=== PATIENT | male | born 1955 | race African-American/Black ===

== ENCOUNTER 2023-04-02 17:46 | Emergency (ER) | payer OTHER ==
[2023-04-02 17:56] VITALS: BP 138/94; PULSE 82; RESP 18; TEMP 98.7; BMI 30.5
[2023-04-02] MEDS ORDERED: KETOROLAC TROMETHAMINE 30 MG/1 ML VIAL IM ONE (18:43)
[2023-04-02] MEDS ORDERED: METHOCARBAMOL 500 MG TABLET PO ONE (18:46)
[2023-04-02] MEDS ORDERED: METHOCARBAMOL 500 MG TABLET ONE (18:52)
[2023-04-02] MEDS ORDERED: KETOROLAC TROMETHAMINE 30 MG/1 ML VIAL ONE (18:53)
[2023-04-02] MEDS ORDERED: LIDOCAINE 5% TOPICAL PATCH TP ONE (19:02)
[2023-04-02] MEDS ORDERED: LIDOCAINE 5% TOPICAL PATCH ONE (19:07)
[2023-04-02] MEDS ORDERED: LIDOCAINE PATCH REMOVAL MC ONE (19:13)
[2023-04-02] MEDS ORDERED: LIDOCAINE PATCH REMOVAL MC SCH (22:00)
== END 2023-04-02 19:16 | disposition home or self-care (01) ==
LOC: JERFT 17:46 → JER 17:46 → JERFT 19:16
PROC: 3E0233Z Introduction of Anti-inflammatory into Muscle, Percutaneous Approach (ICD-10-PCS; principal; 2023-04-02)
DX: M79.651 Pain in right thigh (principal); M79.18 Myalgia, other site
CPT/HCPCS: 99284-25

== ENCOUNTER 2023-06-29 06:23 | Emergency (ER) | payer OTHER ==
[2023-06-29 06:28] VITALS: BMI 27.1
[2023-06-29] MEDS ORDERED: SODIUM CHLORIDE 1,000 ML IV STA (10:59)
[2023-06-29 11:18] LABS: BASO % 0.3 % (0-2.0); EOS % 0.5 % (0-4.5); HEMOGLOBIN 14.9 GM/dL (11.7-16.9); INR 1.08 (0.83-1.09); LYMPH % 22.7 % (8-40); MCHC 31.7 g/dl (32.0-35.9); MEAN CELL VOLUME 75.7 fl (80-96); MEAN PLT VOLUME 10.5 fl (7.5-11.1); MONO % 7.1 % (3.8-10.2); NEUT % 69.4 % (42.8-82.8); PLATELET COUNT 281 10^3/uL (134-434); PROTHROMBIN TIME (PATIENT) 12.5 SEC (9.7-13.0); RBC 6.21 M/mm3 (4.00-5.60); WHITE BLOOD COUNT 16.2 K/mm3 (4.0-10.0)
[2023-06-29 11:21] LABS: ACTIVATED PTT 30.9 SECONDS (25.2-36.5)
[2023-06-29 11:29] LABS: POTASSIUM 3.8 mmol/L (3.5-5.1)
[2023-06-29 11:31] LABS: CALCIUM 9.1 mg/dL (8.5-10.1)
[2023-06-29 11:32] LABS: ALBUMIN 3.8 g/dl (3.4-5.0); BLOOD UREA NITROGEN 11.6 mg/dL (7-18)
[2023-06-29 11:35] LABS: CREATININE 1.2 mg/dL (0.55-1.3)
[2023-06-29 11:37] LABS: BILIRUBIN,TOTAL 0.4 mg/dL (0.2-1); TOT PROT 7.9 g/dl (6.4-8.2)
[2023-06-29 11:39] LABS: N-TERMINAL BNP 219.6 pg/ml (5-125)
[2023-06-29] MEDS ORDERED: LORazepam 2 MG/ML SDV VIAL IVPUSH STA (12:49)
[2023-06-29] MEDS ORDERED: LABETALOL HCL 5 MG/1 ML (100MG/20 ML VIAL) IVPUSH ONE (13:57)
[2023-06-29 14:25] VITALS: PULSE 81; RESP 16
[2023-06-29] MEDS ORDERED: niCARdipine HCL 25 MG/10 ML AMPUL IVPB ONE (14:27)
[2023-06-29] MEDS ORDERED: NICARDIPINE 25 MG in DEXTROSE 5%-WATER - 240 ML IVPB SCH (15:30)
[2023-06-30 10:02] VITALS: BP 155/95; TEMP 98
== END 2023-06-29 16:05 | disposition short-term general hospital (02) ==
LOC: JER 06:23
PROC: 3E033GC Introduction of Other Therapeutic Substance into Peripheral Vein, Percutaneous Approach (ICD-10-PCS; principal; 2023-06-29)
PROC: 3E033GC Introduction of Other Therapeutic Substance into Peripheral Vein, Percutaneous Approach (ICD-10-PCS; 2023-06-29)
PROC: 3E0337Z Introduction of Electrolytic and Water Balance Substance into Peripheral Vein, Percutaneous Approach (ICD-10-PCS; 2023-06-29)
DX: R42 Dizziness and giddiness (principal); R51.9 Headache, unspecified; R26.2 Difficulty in walking, not elsewhere classified; R11.2 Nausea with vomiting, unspecified; R50.9 Fever, unspecified; R53.1 Weakness; R10.9 Unspecified abdominal pain; I61.9 Nontraumatic intracerebral hemorrhage, unspecified; W01.0XXA Fall on same level from slipping, tripping and stumbling without subsequent striking against object, initial encounter; Z20.822 Contact with and (suspected) exposure to COVID-19
CPT/HCPCS: 0241U-QW; 36415; 70450-TC; 71046-TC-FY; 74177-TC; 80053; 83880; 84484; 85025; 85610; 85730; 93005; 93010; 99291; Q9967

== ENCOUNTER 2024-09-22 12:52 | Emergency (ER) | payer OTHER ==
[2024-09-22 13:03] VITALS: BP 149/90; PULSE 72; RESP 20; TEMP 97.9; BMI 30.5
[2024-09-22] MEDS ORDERED: IBUPROFEN 600 MG TABLET (FP) PO ONE (13:23)
[2024-09-22] MEDS: IBUPROFEN 600 MG TABLET (FP) PO ONE (13:36)
== END 2024-09-22 15:29 | disposition home or self-care (01) ==
LOC: JERFT 12:52
DX: S62.92XA Unspecified fracture of left hand, initial encounter for closed fracture (principal); X58.XXXA Exposure to other specified factors, initial encounter
CPT/HCPCS: 73110-TC-LT-FY; 73130-TC-LT-FY; 99283-25

== ENCOUNTER 2024-11-09 15:57 | Emergency (ER) | payer OTHER ==
[2024-11-09 16:15] VITALS: BP 136/87; PULSE 98; RESP 18; TEMP 98.6; BMI 30.5
[2024-11-09] MEDS ORDERED: POLYMYXIN B SULFATE/TMP 10 ML OPHTHALMIC SOLUTION OS ONE (16:55)
== END 2024-11-09 17:01 | disposition home or self-care (01) ==
LOC: JERFT 15:57
DX: H11.32 Conjunctival hemorrhage, left eye (principal)
CPT/HCPCS: 99283-25

== ENCOUNTER 2025-07-30 10:49 | Emergency (ER) | payer OTHER ==
[2025-07-30 10:56] VITALS: BP 151/89; PULSE 83; RESP 20; TEMP 98; BMI 31.1
[2025-07-30] MEDS: PANTOPRAZOLE SODIUM 40 MG VIAL IVPUSH ONE (11:14)
[2025-07-30] MEDS: ACETAMINOPHEN 1000 MG/100 ML BAG IVPB ONE (11:14)
[2025-07-30] MEDS ORDERED: PANTOPRAZOLE SODIUM 40 MG VIAL ONE (11:15)
[2025-07-30] MEDS ORDERED: ACETAMINOPHEN INJECTION 100 ML ONE (11:15)
[2025-07-30] MEDS ORDERED: ONDANSETRON 4 MG/2 ML VIAL ONE (11:24)
[2025-07-30] MEDS: ONDANSETRON 4 MG/2 ML VIAL IVPUSH ONE (11:39)
[2025-07-30 11:58] LABS: ABSOLUTE IMMATURE GRANULOCYTES 0.07 x10^3/uL (0.0-0.031); BASOPHILS # 0.03 x10^3/uL (0.01-0.08); EOSINOPHIL % 0.2 % (0.8-7.0); EOSINOPHILS # 0.02 x10^3/uL (0.04-0.54); MCHC 30.6 g/dl (32.3-36.5); MEAN CELL VOLUME 75.5 fl (79.0-92.2); MEAN PLT VOLUME 11.0 fl (9.4-12.4); MONOCYTE # 0.95 x10^3/uL (0.30-0.82); MONOCYTE % 7.7 % (5.3-12.2); RDW 15.9 % (12.2-16.4)
[2025-07-30 12:02] LABS: INR 1.19 (0.83-1.09); PROTHROMBIN TIME (PATIENT) 13.1 SEC (9.7-13.0)
[2025-07-30 12:05] LABS: ACTIVATED PTT 30.7 SECONDS (25.2-36.5)
[2025-07-30 12:28] LABS: GLUCOSE,RANDOM 99.0 mg/dL (74-106); TOT PROT 7.6 g/dl (6.4-8.2)
[2025-07-30 12:29] LABS: CO2 24.0 mmol/L (21-32)
[2025-07-30 12:31] LABS: ALK PHOS 57.0 U/L (40-150)
[2025-07-30 12:33] LABS: SGOT/AST 35.0 U/L (5-34); SGPT/ALT 26.0 U/L (0-55)
[2025-07-30 12:34] LABS: CREATININE 1.14 mg/dL (0.55-1.3)
[2025-07-30] MEDS: morphine CARPU-JECT 4 MG/1 ML DISP.SYRIN IVPUSH ONE (12:56)
[2025-07-30] MEDS ORDERED: MORPHINE SULFATE 2 MG/ML SYRINGE ONE (12:57)
[2025-07-30 13:21] LABS: HCV DIAGNOSTIC IN-HOUSE W/RFLX NON-REACTIVE (NONREACTIVE)
[2025-07-30 19:18] LABS: HIV INTERPRETATION NEGATIVE (NEGATIVE)
== END 2025-07-30 15:07 | disposition left against medical advice (07) ==
LOC: JER 10:49
PROC: 3E033NZ Introduction of Analgesics, Hypnotics, Sedatives into Peripheral Vein, Percutaneous Approach (ICD-10-PCS; principal; 2025-07-30)
PROC: 3E033NZ Introduction of Analgesics, Hypnotics, Sedatives into Peripheral Vein, Percutaneous Approach (ICD-10-PCS; 2025-07-30)
PROC: 3E033GC Introduction of Other Therapeutic Substance into Peripheral Vein, Percutaneous Approach (ICD-10-PCS; 2025-07-30)
PROC: 3E033GC Introduction of Other Therapeutic Substance into Peripheral Vein, Percutaneous Approach (ICD-10-PCS; 2025-07-30)
DX: K92.2 Gastrointestinal hemorrhage, unspecified (principal); K92.0 Hematemesis; R51.9 Headache, unspecified; R10.30 Lower abdominal pain, unspecified
CPT/HCPCS: 36415; 80053; 83605; 83690; 84484; 85025; 85610; 85730; 86803; 86850; 86900; 86901; 87389; 93005; 93010; 96374; 96375; 99284-25